=== PATIENT | male | born 1965 | race American Indian/Alaskan Native ===

== ENCOUNTER 2016-09-21 21:19 | Emergency (ER) | payer MEDICAID, OTHER ==
[2016-09-21 21:30] VITALS: BP 123/71
--- NOTE | 2016-09-21 21:43 | EDM.PDOC ---
ED HPI GI/ABDOMINAL - General Chief Complaint: Abdominal Pain Stated Complaint: AM Time Seen by Provider: 09/21/16 21:30 Source of Information: Reports: Patient History Limitations: Reports: No limitations - History of Present Illness INITIAL COMMENTS - FREE TEXT/NARRATIVE: This 51 yo male patient was brought to the ED by [facility] due to right sided abdominal pain. The patient reports his pain started on Thursday evening and has gotten worse since that time. The patient reports he was supposed to have dialysis yesterday (Thursday), but did not go due to his abdominal pain. The patient reports he has taken Tylenol, anti gas medications as well as his regular medications with no improvement in his pain. The patient reports he has a history of CKD, previous episodes of pancreatitis and diverticulitis, but has never had pain in this area before. The patient reports his whole abdomen is tender, but increased pain under his right ribs or in his right upper abdomen. The patient reports he is scheduled to have dialysis on Tuesdays, and Saturdays through [facility] in [place] (on [address]). The patient reports he only missed yesterday's dialysis appointment. Symptom Onset Date: 09/19/16 Timing/Duration: Reports: Constant, Getting worse Location: RUQ Quality: Reports: ache, cramping Severity: severe Worsens with: Reports: palpation Associated Symptoms: Reports: loss of appetite Treatments LODE MINER: Reports: Acetaminophen - Related Data Allergies/ADRs: Allergies Allergy/AdvReac Type Severity Reaction Status Date / Time codeine Allergy Airway Verified 09/21/16 21:26 Tightness tramadol Allergy Airway Verified 09/21/16 21:26 Tightness Home Meds: Home Meds Biotin/FA/Vit C/Vit B Complex [Nephrocaps] 1 tab PO DAILY 03/10/16 [History] Calcium Carbonate [Calcium] 500 mg PO DAILY 03/10/16 [History] Furosemide [Lasix] 40 mg PO DAILY 03/10/16 [History] Metoprolol Tartrate [Lopressor] 100 mg PO DAILY 03/10/16 [History] Omeprazole 20 mg PO DAILY 03/10/16 [History] Vit B Cmplx NO3/Fa/C/Biot/Zinc [Nephplex Rx] 1 each PO DAILY 03/10/16 [History] amLODIPine Besylate [Amlodipine Besylate] 10 mg PO DAILY 03/10/16 [History] Past Medical History HEENT History: Reports: Retinal detachment (right), Other (see below) (vision impairment--blind.) Other HEENT History: legally blind, can make out figures/shapes with right eye. Cardiovascular History: Reports: Hypertension Gastrointestinal History: Reports: Diverticulosis, GERD Genitourinary History: Reports: Dialysis, Renal calculus, Other (see below) ( end stage renal disease on dialysis.) Other Genitourinary History: ESRD Musculoskeletal History: Reports: Amputation, Fracture Psychiatric History: Reports: Anxiety Endocrine/Metabolic History: Reports: Diabetes, type II - Past Surgical History HEENT Surgical History: Reports: Eye surgery ( left diabetic retinopathy.), LASIK Musculoskeletal Surgical History: Reports: Amputation (right BKA.) Social & Family History - Family History Family Medical History: Noncontributory - Tobacco Use Smoking Status *Q: Former Smoker Years of Tobacco use: 20 Packs/Tins Daily: 0.1 Second Hand Smoke Exposure: Yes - Caffeine Use Caffeine Use: Reports: Coffee, Soda, Tea - Alcohol Use Days Per Week of Alcohol Use: 0 - Recreational Drug Use Recreational Drug Use: Yes Drug Use in Last 12 Months: Yes Recreational Drug Type: Reports: Marijuana/Hashish Recreational Drug Use Frequency: Not Used In Over 2 Months - Living Situation & Occupation Living situation: Reports: with significant other Occupation: disabled ED ROS GENERAL - Review of Systems Review Of Systems: ROS reveals no pertinent complaints other than HPI. ED EXAM, GI/ABD - Physical Exam Exam: See Below Exam Limited By: No limitations General Appearance: alert, WD/WN, severe distress, obese Eyes: bilateral: normal appearance, EOMI Ears: normal external exam, normal canal, hearing grossly normal, normal TMs Nose: normal inspection, normal mucosa, no blood Throat/Mouth: Normal inspection, Normal lips, Normal teeth, Normal gums, Normal oropharynx, Normal voice, No airway compromise Head: atraumatic, normocephalic Neck: normal inspection, supple, non-tender, full range of motion Respiratory/Chest: no respiratory distress, lungs clear, normal breath sounds, no accessory muscle use, chest non-tender Cardiovascular: normal peripheral pulses, regular rate, rhythm GI/Abdominal: normal bowel sounds, tenderness (diffuse), guarding (especially in the RUQ) (Male) Exam: Deferred Rectal (Males) Exam: Deferred Back Exam: normal inspection, full range of motion, NT Extremities: normal inspection, normal range of motion, non-tender, normal capillary refill, no pedal edema Neurological: alert, oriented, CN II-XII intact, normal cognition, normal gait, normal reflexes, no motor/sensory deficits Psychiatric: normal affect, normal mood Skin Exam: Warm, Dry, Intact, Normal color, No rash Lymphatic: no adenopathy Course - Vital Signs Last Recorded V/S: Last Vital Signs Temp 36.2 C 09/21/16 21:29 Pulse 70 09/21/16 21:29 Resp 22 H 09/21/16 21:29 BP 123/71 09/21/16 21:29 Pulse Ox 99 09/21/16 21:29 - Orders/Labs/Meds Orders: Active Orders 24 hr Category Date Time Status RT Aerosol Therapy [RC] ASDIRECTED Care 09/21/16 23:27 Ordered Abdomen Pelvis wo Cont [CT] Urgent Exams 09/21/16 22:08 Taken Chest 1V Frontal [CR] Urgent Exams 09/21/16 22:37 Taken Insulin Regular, Human [NovoLIN R] Med 09/22/16 23:25 Once 10 unit IV ONETIME ONE Lactated Ringers [Ringers, Lactated] 1,000 ml Med 09/21/16 23:45 Ordered IV ASDIRECTED Medication Orders Insulin Human Regular (Novolin R) 10 unit IV ONETIME ONE PRN Reason: Protocol Stop: 09/22/16 23:26 Labs: Laboratory Tests 09/21/16 09/21/16 09/21/16 Range/Units 21:35 21:35 21:35 WBC 7.6 (5.0-10.0) 10^3/uL RBC 2.82 L (4.6-6.2) 10^6/uL Hgb 9.0 L (14.0-18.0) g/dL Hct 28.1 L (40.0-54.0) % MCV 99.6 (80-100) fL MCH 31.9 (27.0-34.0) pg MCHC 32.0 L (33.0-35.0) g/dL Plt Count 202 (150-450) 10^3/uL Neut % (Auto) 68.2 (42.2-75.2) % Lymph % (Auto) 16.5 L (20.5-50.1) % [place] % (Auto) 11.4 H (2-8) % Eos % (Auto) 2.6 (1.0-3.0) % Baso % (Auto) 1.3 H (0.0-1.0) % Sodium 137 (135-145) mmol/L Potassium 6.0 H (3.6-5.0) mmol/L Chloride 102 (101-111) mmol/L Carbon Dioxide 21.0 (21.0-31.0) mmol/L Anion Gap 20.0 BUN 92 H (7-18) mg/dL Creatinine 8.8 H (0.6-1.3) mg/dL Est Cr Clr Drug Dosing TNP Estimated GFR (MDRD) 6 BUN/Creatinine Ratio 10.45 Glucose 92 (74-105) mg/dL Calcium 8.1 L (8.4-10.2) mg/dl Magnesium 2.5 (1.8-2.5) mg/dL Total Bilirubin 0.9 (0.2-1.0) mg/dL AST 36 (10-42) IU/L ALT 30 (10-60) IU/L Alkaline Phosphatase 194 H (42-121) IU/L B-Natriuretic Peptide 2480 H (0-100) pg/ml Total Protein 8.1 (6.7-8.2) g/dl Albumin 3.5 (3.2-5.5) g/dl Globulin 4.6 Albumin/Globulin Ratio 0.76 Amylase 102 H (28-100) U/L Lipase 60 H (22-51) U/L Urine Color (YELLOW) Urine Appearance (CLEAR) Urine pH (5.0-9.0) Ur Specific [place] (1.005-1.030) Urine Protein (NEGATIVE) Urine Glucose (UA) (NEGATIVE) Urine Ketones (NEGATIVE) Urine Occult Blood (NEGATIVE) Urine Nitrite (NEGATIVE) Urine Bilirubin (NEGATIVE) Urine Urobilinogen (0.2-1.0) mg/dL Ur Leukocyte Esterase (NEGATIVE) Urine RBC /HPF Urine WBC (0-5/HPF) /HPF Ur Epithelial Cells /HPF Urine Bacteria (0-FEW/HPF) /HPF Hyaline Casts /LPF Urine Opiates Screen (NEGATIVE) Ur Oxycodone Screen (NEGATIVE) Urine Methadone Screen (NEGATIVE) Ur Barbiturates Screen (NEGATIVE) U Tricyclic Antidepress (NEGATIVE) Ur Phencyclidine Scrn (NEGATIVE) Ur Amphetamine Screen (NEGATIVE) U Methamphetamines Scrn (NEGATIVE) Urine MDMA Screen (NEGATIVE) U Benzodiazepines Scrn (NEGATIVE) Urine Cocaine Screen (NEGATIVE) U Marijuana (THC) Screen (NEGATIVE) Ethyl Alcohol < 5 mg/dL 09/21/16 09/21/16 Range/Units 22:00 22:00 WBC (5.0-10.0) 10^3/uL RBC (4.6-6.2) 10^6/uL Hgb (14.0-18.0) g/dL Hct (40.0-54.0) % MCV (80-100) fL MCH (27.0-34.0) pg MCHC (33.0-35.0) g/dL Plt Count (150-450) 10^3/uL Neut % (Auto) (42.2-75.2) % Lymph % (Auto) (20.5-50.1) % [place] % (Auto) (2-8) % Eos % (Auto) (1.0-3.0) % Baso % (Auto) (0.0-1.0) % Sodium (135-145) mmol/L Potassium (3.6-5.0) mmol/L Chloride (101-111) mmol/L Carbon Dioxide (21.0-31.0) mmol/L Anion Gap BUN (7-18) mg/dL Creatinine (0.6-1.3) mg/dL Est Cr Clr Drug Dosing Estimated GFR (MDRD) BUN/Creatinine Ratio Glucose (74-105) mg/dL Calcium (8.4-10.2) mg/dl Magnesium (1.8-2.5) mg/dL Total Bilirubin (0.2-1.0) mg/dL AST (10-42) IU/L ALT (10-60) IU/L Alkaline Phosphatase (42-121) IU/L B-Natriuretic Peptide (0-100) pg/ml Total Protein (6.7-8.2) g/dl Albumin (3.2-5.5) g/dl Globulin Albumin/Globulin Ratio Amylase (28-100) U/L Lipase (22-51) U/L Urine Color Yellow (YELLOW) Urine Appearance Clear (CLEAR) Urine pH 8.5 (5.0-9.0) Ur Specific [place] 1.020 (1.005-1.030) Urine Protein >=300 H (NEGATIVE) Urine Glucose (UA) 250 H (NEGATIVE) Urine Ketones Negative (NEGATIVE) Urine Occult Blood Small H (NEGATIVE) Urine Nitrite Negative (NEGATIVE) Urine Bilirubin Negative (NEGATIVE) Urine Urobilinogen 0.2 (0.2-1.0) mg/dL Ur Leukocyte Esterase Negative (NEGATIVE) Urine RBC 10-20 H /HPF Urine WBC 0-5 (0-5/HPF) /HPF Ur Epithelial Cells Few /HPF Urine Bacteria Few (0-FEW/HPF) /HPF Hyaline Casts Occasional H /LPF Urine Opiates Screen Negative (NEGATIVE) Ur Oxycodone Screen Positive H (NEGATIVE) Urine Methadone Screen Negative (NEGATIVE) Ur Barbiturates Screen Negative (NEGATIVE) U Tricyclic Antidepress Negative (NEGATIVE) Ur Phencyclidine Scrn Negative (NEGATIVE) Ur Amphetamine Screen Negative (NEGATIVE) U Methamphetamines Scrn Negative (NEGATIVE) Urine MDMA Screen Negative (NEGATIVE) U Benzodiazepines Scrn Negative (NEGATIVE) Urine Cocaine Screen Negative (NEGATIVE) U Marijuana (THC) Screen Negative (NEGATIVE) Ethyl Alcohol mg/dL Meds: Medications Generic Name Dose Route Start Last Admin Trade Name Freq PRN Reason Stop Dose Admin Insulin Human Regular 10 unit 09/22/16 23:25 Novolin R IV 09/22/16 23:26 ONETIME ONE Protocol Discontinued Medications Generic Name Dose Route Start Last Admin Trade Name Freq PRN Reason Stop Dose Admin Albuterol 2.5 mg 09/21/16 23:25 Proventil Neb Soln NEB 09/21/16 23:26 ONETIME ONE Calcium Gluconate 1 gm 09/21/16 23:25 Calcium Gluconate IVPUSH 09/21/16 23:26 ONETIME ONE Dextrose/Water 50 ml 09/21/16 23:20 Dextrose 50% In Water IVPUSH 09/21/16 23:21 ONETIME ONE Sodium Polystyrene Sulfonate 15 gm 09/21/16 23:20 Kayexalate PO 09/21/16 23:21 ONETIME ONE Departure - Departure Time of Disposition: 23:34 Disposition: DC/Tfer to Acute Hospital 02 Condition: poor Clinical Impression: Hyperkalemia Abdominal pain Qualifiers: Abdominal location: right upper quadrant Qualified Code(s): R10.11 - Right upper quadrant pain Pancreatitis Qualifiers: Chronicity: acute Pancreatitis type: unspecified pancreatitis type Acute pancreatitis complication: unspecified Qualified Code(s): K85.90 - Acute pancreatitis without necrosis or infection, unspecified Forms: Interfacility Transfer EMTALA Care Plan Goals: Discussed the examination, history, CT and lab results with Dr. Dolan ( Hospitalist with [facility] in [place]). Dr. Dolan accepted the patient for continued evaluation and management. The patient will be transported by [facility]. - My Orders Last 24 Hours: My Active Orders 09/21/16 22:08 Abdomen Pelvis wo Cont [CT] Urgent 09/21/16 22:37 Chest 1V Frontal [CR] Urgent 09/21/16 23:27 RT Aerosol Therapy [RC] ASDIRECTED 09/21/16 23:45 Lactated Ringers [Ringers, Lactated] 1,000 ml IV ASDIRECTED 09/22/16 23:25 Insulin Regular, Human [NovoLIN R] 10 unit IV ONETIME ONE - Assessment/Plan Last 24 Hours: My Active Orders 09/21/16 22:08 Abdomen Pelvis wo Cont [CT] Urgent 09/21/16 22:37 Chest 1V Frontal [CR] Urgent 09/21/16 23:27 RT Aerosol Therapy [RC] ASDIRECTED 09/21/16 23:45 Lactated Ringers [Ringers, Lactated] 1,000 ml IV ASDIRECTED 09/22/16 23:25 Insulin Regular, Human [NovoLIN R] 10 unit IV ONETIME ONE
[2016-09-21 22:01] LABS: CHLORIDE,CL 102 mmol/L (101-111); SODIUM,NA 137 mmol/L (135-145)
[2016-09-21] MEDS ORDERED: 50% Dextrose in Water 50 ML Syringe IVPUSH ONE (23:20)
[2016-09-21] MEDS ORDERED: Sodium Polystyrene Sulfonate 15 GM/60 ML Susp 60 ML Bot PO ONE (23:20)
[2016-09-21] MEDS ORDERED: Albuterol 0.083% 2.5 MG/3 ML Neb Soln NEB ONE (23:25)
[2016-09-21] MEDS ORDERED: Calcium Gluconate 10% 1 GM/10 ML SDV IVPUSH ONE (23:25)
[2016-09-21] MEDS ORDERED: Insulin Regular, Human 100 Units/ML 10 ML Vial ONE (23:34)
[2016-09-21] MEDS ORDERED: Lactated Ringers 1,000 ML IV SCH (23:45)
[2016-09-22] MEDS ORDERED: Morphine 2 MG/ML Syringe IVPUSH ONE (00:13)
[2016-09-22] MEDS ORDERED: Morphine 2 MG/ML Syringe ONE (00:15)
[2016-09-22] MEDS ORDERED: Insulin Regular, Human 100 Units/ML 10 ML Vial IV ONE (23:25)
== END 2016-09-22 00:19 ==
LOC: DL.ED 21:19
DX: K85.90 Acute pancreatitis without necrosis or infection, unspecified (principal); E87.5 Hyperkalemia; Z88.6 Allergy status to analgesic agent; Z79.899 Other long term (current) drug therapy; H54.8 Legal blindness, as defined in USA; K21.9 Gastro-esophageal reflux disease without esophagitis; I12.0 Hypertensive chronic kidney disease with stage 5 chronic kidney disease or end stage renal disease; E11.22 Type 2 diabetes mellitus with diabetic chronic kidney disease; N18.6 End stage renal disease; Z99.2 Dependence on renal dialysis; E11.319 Type 2 diabetes mellitus with unspecified diabetic retinopathy without macular edema; Z89.511 Acquired absence of right leg below knee; Z87.891 Personal history of nicotine dependence
CPT/HCPCS: 36415; 71010; 74176; 80053; 80305; 81001; 82150; 83690; 83735; 83880; 85025; 94640; 96361; 96374; 96375; 99285; A9270; G0480; J0610; J1815; J2270; J7120; J7620; 99284; J7060

== ENCOUNTER 2016-11-25 21:26 | Emergency (ER) | payer MEDICAID, OTHER ==
--- NOTE | 2016-11-25 22:04 | EDM.PDOC ---
ED HPI GENERAL MEDICAL PROBLEM - General Chief Complaint: Abdominal Pain Stated Complaint: IN BY AMBULANCE Time Seen by Provider: 11/25/16 21:46 Source of Information: Reports: Patient History Limitations: Reports: No limitations - History of Present Illness INITIAL COMMENTS - FREE TEXT/NARRATIVE: This 51 yo male patient reports to the ED due to pain in his right knee due to a fall last Thursday. During the fall, the patient reports his left leg went through the floor and he his his right leg very hard on the floor. The patient reports he has been in so much pain since the fall, that he has missed dialysis last , last Thursday and today. The patient reports he has also been experiencing diarrhea over the past 2 days. The patient reports he has been taking all of his medications except for today. Today, the patient did not take his medications due to not eating. This patient has been seen in the ED with non -compliance issues with dialysis. The patient has dialysis in [place] and reports waiting for someone to change his dialysis location to either [place] or [place]. 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, NSAIDS Upper Abdomen Pain Score (Numeric/FACES): 6 - Related Data Allergies Allergy/AdvReac Type Severity Reaction Status Date / Time codeine Allergy Airway Verified 11/25/16 21:54 Tightness tramadol Allergy Airway Verified 11/25/16 21:54 Tightness Home Meds: Home Meds Biotin/FA/Vit C/Vit B Complex [Nephrocaps] 1 tab PO DAILY 03/10/16 [History] Calcium Carbonate [Calcium] 500 mg PO DAILY 03/10/16 [History] Furosemide [Lasix] 40 mg PO DAILY 03/10/16 [History] Metoprolol Tartrate [Lopressor] 100 mg PO DAILY 03/10/16 [History] Omeprazole 20 mg PO DAILY 03/10/16 [History] Vit B Cmplx NO3/Fa/C/Biot/Zinc [Nephplex Rx] 1 each PO DAILY 03/10/16 [History] amLODIPine Besylate [Amlodipine Besylate] 10 mg PO DAILY 03/10/16 [History] Past Medical History HEENT History: Reports: Retinal detachment, Other (see below) Other HEENT History: legally blind, can make out figures/shapes with right eye. Cardiovascular History: Reports: Hypertension Gastrointestinal History: Reports: Diverticulosis, GERD Genitourinary History: Reports: Dialysis, Renal calculus, Other (see below) Other Genitourinary History: ESRD Musculoskeletal History: Reports: Amputation, Fracture Psychiatric History: Reports: Anxiety Endocrine/Metabolic History: Reports: Diabetes, type II - Past Surgical History HEENT Surgical History: Reports: Eye surgery, LASIK Musculoskeletal Surgical History: Reports: Amputation Social & Family History - Family History Family Medical History: Noncontributory - Tobacco Use Smoking Status *Q: Never Smoker Years of Tobacco use: 20 Packs/Tins Daily: 0.1 Used Tobacco, but Quit: No Second Hand Smoke Exposure: Yes - Caffeine Use Caffeine Use: Reports: Soda - Alcohol Use Days Per Week of Alcohol Use: 0 Date of Last Drink: 11/11/16 - Recreational Drug Use Recreational Drug Use: No Drug Use in Last 12 Months: Yes Recreational Drug Type: Reports: Marijuana/Hashish Recreational Drug Use Frequency: Not Used In Over 2 Months - Living Situation & Occupation Living situation: Reports: with significant other Occupation: disabled ED ROS GENERAL - Review of Systems Review Of Systems: ROS reveals no pertinent complaints other than HPI. ED EXAM, GENERAL - Physical Exam Exam: See Below Exam Limited By: No limitations General Appearance: alert, WD/WN, moderate distress Eye Exam: bilateral eye: EOMI, PERRL Ears: normal external exam, normal canal, hearing grossly normal, normal TMs Nose: normal inspection, normal mucosa, no blood Throat/Mouth: Normal inspection, Normal lips, Normal teeth, Normal gums, Normal oropharynx, Normal voice, No airway compromise Head: atraumatic, normocephalic Neck: normal inspection, supple, non-tender, full range of motion Respiratory/Chest: no respiratory distress, lungs clear, normal breath sounds, no accessory muscle use, chest non-tender Cardiovascular: normal peripheral pulses, regular rate, rhythm, no edema, no gallop, no JVD, no murmur, no rub GI/Abdominal: Normal Bowel Sounds, Soft, No Organomegaly, No Distention, No Abnormal Bruit, No Mass, Pelvis Stable, Tender (diffuse) (Male) Exam: Deferred Rectal (Males) Exam: Deferred Back Exam: normal inspection, full range of motion, NT Extremities: other (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 There is no evidence of injury or bruising in the area.) Neurological: alert, oriented, CN II-XII intact, normal cognition, normal gait, normal reflexes, no motor/sensory deficits Psychiatric: depressed mood, flat affect Skin Exam: Warm, Intact, Normal color, No rash Lymphatic: no adenopathy Course - Vital Signs Last Recorded V/S: Last Vital Signs Temp 35.8 C 11/25/16 21:27 Pulse 71 11/25/16 21:27 Resp 20 11/25/16 21:27 BP 171/92 H 11/25/16 21:27 Pulse Ox 100 11/25/16 21:27 - Orders/Labs/Meds Orders: Active Orders 24 hr Category Date Time Status RT Aerosol Therapy [RC] ASDIRECTED Care 11/25/16 22:24 Ordered Chest 1V Frontal [CR] Urgent Exams 11/25/16 22:37 Ordered CULTURE BLOOD [BC] Stat Lab 11/25/16 21:40 Received CULTURE BLOOD [BC] Stat Lab 11/25/16 21:45 Received Insulin Regular, Human [NovoLIN R] Med 11/26/16 22:23 Once 10 unit IV ONETIME ONE Blood Culture x2 Reflex Set [OM.PC] Stat Oth 11/25/16 21:28 Ordered Medication Orders Insulin Human Regular (Novolin R) 10 unit IV ONETIME ONE PRN Reason: Protocol Stop: 11/26/16 22:24 Labs: Laboratory Tests 11/25/16 11/25/16 11/25/16 Range/Units 21:40 21:40 21:40 WBC 5.6 (5.0-10.0) 10^3/uL RBC 3.44 L (4.6-6.2) 10^6/uL Hgb 10.6 L (14.0-18.0) g/dL Hct 31.4 L (40.0-54.0) % MCV 91.3 (80-100) fL MCH 30.8 (27.0-34.0) pg MCHC 33.8 (33.0-35.0) g/dL Plt Count 115 L (150-450) 10^3/uL Neut % (Auto) 52.5 (42.2-75.2) % Lymph % (Auto) 30.6 (20.5-50.1) % [place] % (Auto) 14.4 H (2-8) % Eos % (Auto) 1.8 (1.0-3.0) % Baso % (Auto) 0.7 (0.0-1.0) % Sodium 136 (135-145) mmol/L Potassium 6.7 H* (3.6-5.0) mmol/L Chloride 100 L (101-111) mmol/L Carbon Dioxide 15.0 L (21.0-31.0) mmol/L Anion Gap 27.7 BUN 169 H (7-18) mg/dL Creatinine 19.2 H (0.6-1.3) mg/dL Est Cr Clr Drug Dosing 4.88 mL/min Estimated GFR (MDRD) 3 BUN/Creatinine Ratio 8.80 Glucose 103 (74-105) mg/dL Lactic Acid (0.5-2.2) mmol/L Calcium 7.4 L (8.4-10.2) mg/dl Magnesium 2.6 H (1.8-2.5) mg/dL Total Bilirubin 0.6 (0.2-1.0) mg/dL AST 31 (10-42) IU/L ALT 60 (10-60) IU/L Alkaline Phosphatase 134 H (42-121) IU/L Ammonia 37 H (11-35) umol/L B-Natriuretic Peptide > 5000 H (0-100) pg/ml Total Protein 8.0 (6.7-8.2) g/dl Albumin 3.8 (3.2-5.5) g/dl Globulin 4.2 Albumin/Globulin Ratio 0.90 Amylase 109 H (28-100) U/L Lipase 124 H (22-51) U/L Urine Color (YELLOW) Urine Appearance (CLEAR) Urine pH (5.0-9.0) Ur Specific [place] (1.005-1.030) Urine Protein (NEGATIVE) Urine Glucose (UA) (NEGATIVE) Urine Ketones (NEGATIVE) Urine Occult Blood (NEGATIVE) Urine Nitrite (NEGATIVE) Urine Bilirubin (NEGATIVE) Urine Urobilinogen (0.2-1.0) mg/dL Ur Leukocyte Esterase (NEGATIVE) Urine RBC /HPF Urine WBC (0-5/HPF) /HPF Ur Epithelial Cells /HPF Amorphous Sediment (0/HPF) /HPF Urine Bacteria (0-FEW/HPF) /HPF Fine Granular Casts (0/LPF) /LPF Urine Mucus /LPF Salicylates < 4 Urine Opiates Screen (NEGATIVE) Ur Oxycodone Screen (NEGATIVE) Urine Methadone Screen (NEGATIVE) Acetaminophen < 10 Ur Barbiturates Screen (NEGATIVE) U Tricyclic Antidepress (NEGATIVE) Ur Phencyclidine Scrn (NEGATIVE) Ur Amphetamine Screen (NEGATIVE) U Methamphetamines Scrn (NEGATIVE) Urine MDMA Screen (NEGATIVE) U Benzodiazepines Scrn (NEGATIVE) Urine Cocaine Screen (NEGATIVE) U Marijuana (THC) Screen (NEGATIVE) Ethyl Alcohol < 5 mg/dL 11/25/16 11/25/16 11/25/16 Range/Units 21:40 22:03 22:03 WBC (5.0-10.0) 10^3/uL RBC (4.6-6.2) 10^6/uL Hgb (14.0-18.0) g/dL Hct (40.0-54.0) % MCV (80-100) fL MCH (27.0-34.0) pg MCHC (33.0-35.0) g/dL Plt Count (150-450) 10^3/uL Neut % (Auto) (42.2-75.2) % Lymph % (Auto) (20.5-50.1) % [place] % (Auto) (2-8) % Eos % (Auto) (1.0-3.0) % Baso % (Auto) (0.0-1.0) % Sodium (135-145) mmol/L Potassium (3.6-5.0) mmol/L Chloride (101-111) mmol/L Carbon Dioxide (21.0-31.0) mmol/L Anion Gap BUN (7-18) mg/dL Creatinine (0.6-1.3) mg/dL Est Cr Clr Drug Dosing mL/min Estimated GFR (MDRD) BUN/Creatinine Ratio Glucose (74-105) mg/dL Lactic Acid 0.7 (0.5-2.2) mmol/L Calcium (8.4-10.2) mg/dl Magnesium (1.8-2.5) mg/dL Total Bilirubin (0.2-1.0) mg/dL AST (10-42) IU/L ALT (10-60) IU/L Alkaline Phosphatase (42-121) IU/L Ammonia (11-35) umol/L B-Natriuretic Peptide (0-100) pg/ml Total Protein (6.7-8.2) g/dl Albumin (3.2-5.5) g/dl Globulin Albumin/Globulin Ratio Amylase (28-100) U/L Lipase (22-51) U/L Urine Color Yellow (YELLOW) Urine Appearance Cloudy (CLEAR) Urine pH 6.0 (5.0-9.0) Ur Specific [place] 1.020 (1.005-1.030) Urine Protein >=300 H (NEGATIVE) Urine Glucose (UA) 100 H (NEGATIVE) Urine Ketones Negative (NEGATIVE) Urine Occult Blood Moderate H (NEGATIVE) Urine Nitrite Negative (NEGATIVE) Urine Bilirubin Negative (NEGATIVE) Urine Urobilinogen 0.2 (0.2-1.0) mg/dL Ur Leukocyte Esterase Negative (NEGATIVE) Urine RBC 20-30 H /HPF Urine WBC 0-5 (0-5/HPF) /HPF Ur Epithelial Cells Moderate H /HPF Amorphous Sediment Moderate (0/HPF) /HPF Urine Bacteria Rare (0-FEW/HPF) /HPF Fine Granular Casts Few H (0/LPF) /LPF Urine Mucus Moderate H /LPF Salicylates Urine Opiates Screen Negative (NEGATIVE) Ur Oxycodone Screen Negative (NEGATIVE) Urine Methadone Screen Negative (NEGATIVE) Acetaminophen Ur Barbiturates Screen Negative (NEGATIVE) U Tricyclic Antidepress Negative (NEGATIVE) Ur Phencyclidine Scrn Negative (NEGATIVE) Ur Amphetamine Screen Negative (NEGATIVE) U Methamphetamines Scrn Negative (NEGATIVE) Urine MDMA Screen Negative (NEGATIVE) U Benzodiazepines Scrn Negative (NEGATIVE) Urine Cocaine Screen Negative (NEGATIVE) U Marijuana (THC) Screen Negative (NEGATIVE) Ethyl Alcohol mg/dL Meds: Medications Generic Name Dose Route Start Last Admin Trade Name Freq PRN Reason Stop Dose Admin Insulin Human Regular 10 unit 11/26/16 22:23 Novolin R IV 11/26/16 22:24 ONETIME ONE Protocol Discontinued Medications Generic Name Dose Route Start Last Admin Trade Name Freq PRN Reason Stop Dose Admin Albuterol 2.5 mg 11/25/16 22:24 Proventil Neb Soln NEB 11/25/16 22:25 ONETIME ONE Calcium Gluconate 1 gm 11/25/16 22:25 Calcium Gluconate IVPUSH 11/25/16 22:26 ONETIME ONE Dextrose/Water 50 ml 11/25/16 22:24 Dextrose 50% In Water IVPUSH 11/25/16 22:25 ONETIME ONE Insulin Human Regular Confirm 11/25/16 22:40 Novolin R Administered 11/25/16 22:41 Dose 1,000 unit .ROUTE .STK-MED ONE Sodium Bicarbonate 50 meq 11/25/16 22:39 Sodium Bicarbonate 8.4% IVPUSH 11/25/16 22:40 ONETIME ONE Sodium Polystyrene Sulfonate 30 gm 11/25/16 22:25 Kayexalate PO 11/25/16 22:26 ONETIME ONE Departure - Departure Time of Disposition: 10:49 Disposition: DC/Tfer to [facility] 02 Condition: poor Clinical Impression: Hyperkalemia, CHF, Congestive heart failure, Dialysis patient, noncompliant Renal failure Qualifiers: Renal failure chronicity: chronic Chronic kidney disease stage: unspecified stage Qualified Code(s): N18.9 - Chronic kidney disease, unspecified - Discharge Information Forms: Interfacility Transfer EMTALA Care Plan Goals: Discussed the examination, history, x-ray and lab results with Dr. Blackwell ([facility] Hospitalist). Dr. Blackwell accepted the patient for continued evaluation and management. The patient will be transported by [facility]. - My Orders Last 24 Hours: My Active Orders 11/25/16 21:28 Blood Culture x2 Reflex Set [OM.PC] Stat 11/25/16 21:40 CULTURE BLOOD [BC] Stat 11/25/16 21:45 CULTURE BLOOD [BC] Stat 11/25/16 22:24 RT Aerosol Therapy [RC] ASDIRECTED 11/25/16 22:37 Chest 1V Frontal [CR] Urgent 11/26/16 22:23 Insulin Regular, Human [NovoLIN R] 10 unit IV ONETIME ONE - Assessment/Plan Last 24 Hours: My Active Orders 11/25/16 21:28 Blood Culture x2 Reflex Set [OM.PC] Stat 11/25/16 21:40 CULTURE BLOOD [BC] Stat 11/25/16 21:45 CULTURE BLOOD [BC] Stat 11/25/16 22:24 RT Aerosol Therapy [RC] ASDIRECTED 11/25/16 22:37 Chest 1V Frontal [CR] Urgent 11/26/16 22:23 Insulin Regular, Human [NovoLIN R] 10 unit IV ONETIME ONE
[2016-11-25 22:11] LABS: CHLORIDE,CL 100 mmol/L (101-111); SODIUM,NA 136 mmol/L (135-145)
[2016-11-25 22:16] LABS: ACETAMINOPHEN < 10
[2016-11-25] MEDS ORDERED: 50% Dextrose in Water 50 ML Syringe IVPUSH ONE (22:24)
[2016-11-25] MEDS ORDERED: Albuterol 0.083% 2.5 MG/3 ML Neb Soln NEB ONE (22:24)
[2016-11-25] MEDS ORDERED: Sodium Polystyrene Sulfonate 15 GM/60 ML Susp 60 ML Bot PO ONE (22:25)
[2016-11-25] MEDS ORDERED: Calcium Gluconate 10% 1 GM/10 ML SDV IVPUSH ONE (22:25)
[2016-11-25] MEDS ORDERED: Sodium Bicarbonate 8.4% 50 MEQ/50 ML Syringe IVPUSH ONE (22:39)
[2016-11-25] MEDS ORDERED: Insulin Regular, Human 100 Units/ML 10 ML Vial ONE (22:40)
[2016-11-25 23:32] VITALS: BP 171/84
[2016-11-26] MEDS ORDERED: Insulin Regular, Human 100 Units/ML 10 ML Vial IV ONE (22:23)
== END 2016-11-25 23:50 ==
LOC: DL.ED 21:26
DX: I13.2 Hypertensive heart and chronic kidney disease with heart failure and with stage 5 chronic kidney disease, or end stage renal disease (principal); I50.9 Heart failure, unspecified; N18.6 End stage renal disease; E87.5 Hyperkalemia; K21.9 Gastro-esophageal reflux disease without esophagitis; E11.9 Type 2 diabetes mellitus without complications; F41.9 Anxiety disorder, unspecified; Z99.2 Dependence on renal dialysis; Z88.6 Allergy status to analgesic agent; Z88.8 Allergy status to other drugs, medicaments and biological substances; Z79.899 Other long term (current) drug therapy
CPT/HCPCS: 36415; 71010; 73562; 80053; 80305; 81001; 82140; 82150; 83605; 83690; 83735; 83880; 85025; 87040; 94640; 96374; 96375; 99285; A9270; G0480; J0610; J1815; J7620; J7060

== ENCOUNTER 2016-12-10 18:38 | Emergency (ER) | payer MEDICAID, OTHER ==
[2016-12-10] MEDS ORDERED: Metoclopramide 10 MG/2 ML SDV IVPUSH ONE (19:42)
[2016-12-10 20:41] VITALS: BP 162/85
--- NOTE | 2016-12-10 20:58 | EDM.PDOC ---
ED HPI GENERAL MEDICAL PROBLEM - General Chief Complaint: General Stated Complaint: BY AMBULANCE Time Seen by Provider: 12/10/16 19:30 Source of Information: Reports: Patient - History of Present Illness INITIAL COMMENTS - FREE TEXT/NARRATIVE: ED with c/o severe n-v-d, dialysis pt. last run was 2 weeks ago. Patient states to sick to go to [place] for dialysis with urgent diarrhea. dx 2 weeks ago , completed abx for c-diff but not any better. no c/o chest pain or SOB. BS running 120-130 today. Duration: Week(s): Lower Abdomen Pain Score (Numeric/FACES): 8 - Related Data Allergies Allergy/AdvReac Type Severity Reaction Status Date / Time codeine Allergy Airway Verified 12/10/16 19:10 Tightness tramadol Allergy Airway Verified 12/10/16 19:10 Tightness Home Meds: Home Meds Biotin/FA/Vit C/Vit B Complex [Nephrocaps] 1 tab PO DAILY 03/10/16 [History] Calcium Carbonate [Calcium] 500 mg PO DAILY 03/10/16 [History] Furosemide [Lasix] 40 mg PO DAILY 03/10/16 [History] Metoprolol Tartrate [Lopressor] 100 mg PO DAILY 03/10/16 [History] Omeprazole 20 mg PO DAILY 03/10/16 [History] Vit B Cmplx NO3/Fa/C/Biot/Zinc [Nephplex Rx] 1 each PO DAILY 03/10/16 [History] amLODIPine Besylate [Amlodipine Besylate] 10 mg PO DAILY 03/10/16 [History] Past Medical History HEENT History: Reports: Retinal Detachment, Other (See Below) Other HEENT History: legally blind, can make out figures/shapes with right eye. Cardiovascular History: Reports: Hypertension Gastrointestinal History: Reports: Diverticulosis, GERD Genitourinary History: Reports: Dialysis, Renal Calculus, Other (See Below) Other Genitourinary History: ESRD Musculoskeletal History: Reports: Amputation, Fracture Neurological History: Reports: None Psychiatric History: Reports: Anxiety Endocrine/Metabolic History: Reports: Diabetes, Type II Hematologic History: Reports: None Immunologic History: Reports: None Oncologic (Cancer) History: Reports: None Dermatologic History: Reports: None - Infectious Disease History Infectious Disease History: Reports: C-Difficile - Past Surgical History HEENT Surgical History: Reports: Eye Surgery, LASIK Musculoskeletal Surgical History: Reports: Amputation Social & Family History - Family History Family Medical History: Noncontributory - Tobacco Use Smoking Status *Q: Never Smoker Years of Tobacco use: 20 Packs/Tins Daily: 0.1 Used Tobacco, but Quit: No Second Hand Smoke Exposure: Yes - Caffeine Use Caffeine Use: Reports: None - Alcohol Use Days Per Week of Alcohol Use: 0 - Recreational Drug Use Recreational Drug Use: No Drug Use in Last 12 Months: Yes Recreational Drug Type: Reports: Marijuana/Hashish Recreational Drug Use Frequency: Not Used In Over 2 Months - Living Situation & Occupation Living situation: Reports: with Significant Other Occupation: Disabled ED ROS GENERAL - Review of Systems Review Of Systems: See Below Constitutional: Reports: Weakness HEENT: Reports: No Symptoms Respiratory: Reports: No Symptoms Cardiovascular: Reports: No Symptoms GI/Abdominal: Reports: Abdominal Pain (cramping), Diarrhea, Decreased Appetite ( everything runs straight through). Denies: Distension, Melena : Reports: No Symptoms Musculoskeletal: Reports: No Symptoms Skin: Reports: No Symptoms Neurological: Reports: No Symptoms ED EXAM, GENERAL - Physical Exam Exam: See Below Exam Limited By: No Limitations General Appearance: Alert, Mild Distress Eye Exam: Bilateral Eye: EOMI Ears: Normal External Exam Nose: Normal Inspection Throat/Mouth: Normal Inspection Head: Atraumatic, Normocephalic Neck: Normal Inspection Respiratory/Chest: No Respiratory Distress, Crackles (bilateral bases) Cardiovascular: Normal Peripheral Pulses, Regular Rate, Rhythm GI/Abdominal: Tender (mid abdomen), Abnormal Bowel Sounds (hyperactive), Other ( dry heaves, no emesis). No: Distended Back Exam: Normal Inspection, Full Range of Motion Extremities: Other (right BKA) Neurological: Alert, Oriented Psychiatric: Normal Affect Skin Exam: Warm, Intact Course - Vital Signs Last Recorded V/S: Last Vital Signs Temp 98.2 F 12/10/16 20:40 Pulse 81 12/10/16 20:40 Resp 16 12/10/16 20:40 BP 162/85 H 12/10/16 20:40 Pulse Ox 96 12/10/16 20:40 - Orders/Labs/Meds Orders: Active Orders 24 hr Category Date Time Status EKG 12 Lead [EKG Documentation Completion] [RC] STAT Care 12/10/16 19:20 Active Labs: Laboratory Tests 12/10/16 12/10/16 12/10/16 Range/Units 19:25 19:25 19:25 WBC 6.2 (5.0-10.0) 10^3/uL RBC 2.95 L (4.6-6.2) 10^6/uL Hgb 9.0 L (14.0-18.0) g/dL Hct 27.3 L (40.0-54.0) % MCV 92.5 (80-100) fL MCH 30.5 (27.0-34.0) pg MCHC 33.0 (33.0-35.0) g/dL Plt Count 184 (150-450) 10^3/uL Neut % (Auto) 58.7 (42.2-75.2) % Lymph % (Auto) 23.7 (20.5-50.1) % [place] % (Auto) 10.7 H (2-8) % Eos % (Auto) 5.8 H (1.0-3.0) % Baso % (Auto) 1.1 H (0.0-1.0) % Sodium 136 (135-145) mmol/L Potassium 6.7 H* (3.6-5.0) mmol/L Chloride 98 L (101-111) mmol/L Carbon Dioxide 15.0 L (21.0-31.0) mmol/L Anion Gap 29.7 BUN 176 H (7-18) mg/dL Creatinine 22.0 H (0.6-1.3) mg/dL Est Cr Clr Drug Dosing 4.26 mL/min Estimated GFR (MDRD) 2 BUN/Creatinine Ratio 8.00 Glucose 120 H (74-105) mg/dL Calcium 6.9 L (8.4-10.2) mg/dl Magnesium 2.2 (1.8-2.5) mg/dL Total Bilirubin 0.9 (0.2-1.0) mg/dL AST 16 (10-42) IU/L ALT 21 (10-60) IU/L Alkaline Phosphatase 169 H (42-121) IU/L C-Reactive Protein 2.0 H (0.0-1.3) mg/dL B-Natriuretic Peptide 4850 H (0-100) pg/ml Total Protein 8.1 (6.7-8.2) g/dl Albumin 3.5 (3.2-5.5) g/dl Globulin 4.6 Albumin/Globulin Ratio 0.76 Amylase 73 (28-100) U/L Lipase 74 H (22-51) U/L Meds: Medications Discontinued Medications Generic Name Dose Route Start Last Admin Trade Name Freq PRN Reason Stop Dose Admin Metoclopramide HCl 10 mg 12/10/16 19:42 12/10/16 19:46 Reglan IVPUSH 12/10/16 19:43 10 mg ONETIME ONE Administration - Radiology Interpretation Free Text/Narrative:: CT abdomen, diverticulosis , mesenteric edema, gall stone , ascites - Re-Assessments/Exams Free Text/Narrative Re-Assessment/Exam: 12/11/16 04:[address] Dueñas, accepting of patient for further evaluation and management. Tx via [facility]. Departure - Departure Time of Disposition: 20:50 Disposition: DC/Tfer to Acute Hospital 02 Condition: fair Clinical Impression: Dialysis patient, noncompliant, Hx of Clostridium difficile infection, ESRD ( end stage renal disease) on dialysis Diarrhea Qualifiers: Diarrhea type: presumed infectious Qualified Code(s): A09 - Infectious gastroenteritis and colitis, unspecified - Discharge Information Referrals: PCP,None [Primary Care Provider] - Forms: ED Department Discharge - My Orders Last 24 Hours: My Active Orders 12/10/16 19:20 EKG 12 Lead [EKG Documentation Completion] [RC] STAT - Assessment/Plan Last 24 Hours: My Active Orders 12/10/16 19:20 EKG 12 Lead [EKG Documentation Completion] [RC] STAT
--- NOTE | 2016-12-16 10:54 | EKG ---
12/10/2016- GABBI SULLIVAN - EKG per my reading shows sinus rhythm with left anterior fascicular block at the rate of 79. [facility] /[id number]
== END 2016-12-10 21:07 ==
LOC: DL.ED 18:38
DX: A09 Infectious gastroenteritis and colitis, unspecified (principal); I12.0 Hypertensive chronic kidney disease with stage 5 chronic kidney disease or end stage renal disease; N18.6 End stage renal disease; K21.9 Gastro-esophageal reflux disease without esophagitis; F41.9 Anxiety disorder, unspecified; E11.9 Type 2 diabetes mellitus without complications; Z88.5 Allergy status to narcotic agent; Z79.899 Other long term (current) drug therapy; Z99.2 Dependence on renal dialysis
CPT/HCPCS: 36415; 71010; 74176; 80053; 82150; 83690; 83735; 83880; 85025; 86140; 93005; 96374; 99285; J2765

== ENCOUNTER 2017-01-21 13:28 | Emergency (ER) | payer MEDICAID, OTHER ==
--- NOTE | 2017-01-21 13:32 | EDM.PDOC ---
ED HPI GENERAL MEDICAL PROBLEM - General Chief Complaint: Cardiovascular Problem Stated Complaint: IN BY SL AMB Time Seen by Provider: 01/21/17 13:31 Source of Information: Reports: Patient, EMS, EMS Notes Reviewed, Family (exwife ), Old Records, RN, RN Notes Reviewed History Limitations: Reports: No Limitations - History of Present Illness INITIAL COMMENTS - FREE TEXT/NARRATIVE: Arrives from home by ambulance with c/o intermittent confusion, increasing edema , SOB, orthopnea, and profound fatigue. Pt has ESRD and has not gone to dialysis or taken any of his medications for 2 weeks. 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 Pt denies chest pain, fever, chills, N/V/D/C, or abdominal pain. Onset: Gradual Duration: Week(s): (2), Constant, Getting Worse Location: Reports: Generalized Quality: Reports: Ache (in arms and legs) Severity: Severe Improves with: Reports: None Worsens with: Reports: Other (supine position) Associated Symptoms: Reports: No Other Symptoms Bilateral Leg Pain Score (Numeric/FACES): 9 - Related Data Allergies Allergy/AdvReac Type Severity Reaction Status Date / Time codeine Allergy Airway Verified 12/10/16 19:10 Tightness tramadol Allergy Airway Verified 12/10/16 19:10 Tightness Home Meds: Home Meds Biotin/FA/Vit C/Vit B Complex [Nephrocaps] 1 tab PO DAILY 03/10/16 [History] Calcium Carbonate [Calcium] 500 mg PO DAILY 03/10/16 [History] Furosemide [Lasix] 40 mg PO DAILY 03/10/16 [History] Metoprolol Tartrate [Lopressor] 100 mg PO DAILY 03/10/16 [History] Omeprazole 20 mg PO DAILY 03/10/16 [History] Vit B Cmplx NO3/Fa/C/Biot/Zinc [Nephplex Rx] 1 each PO DAILY 03/10/16 [History] amLODIPine Besylate [Amlodipine Besylate] 10 mg PO DAILY 03/10/16 [History] Past Medical History HEENT History: Reports: Retinal Detachment, Other (See Below) Other HEENT History: legally blind, can make out figures/shapes with right eye. Cardiovascular History: Reports: Heart Failure, Hypertension, SOB on Exertion Gastrointestinal History: Reports: Diverticulosis, GERD Genitourinary History: Reports: Dialysis, Renal Calculus, Other (See Below) Other Genitourinary History: ESRD Musculoskeletal History: Reports: Amputation, Fracture Neurological History: Reports: None Psychiatric History: Reports: Anxiety Endocrine/Metabolic History: Reports: Diabetes, Type II Hematologic History: Reports: None Immunologic History: Reports: None Oncologic (Cancer) History: Reports: None Dermatologic History: Reports: None - Infectious Disease History Infectious Disease History: Reports: C-Difficile - Past Surgical History HEENT Surgical History: Reports: Eye Surgery, LASIK Musculoskeletal Surgical History: Reports: Amputation Social & Family History - Family History Family Medical History: Noncontributory - Tobacco Use Smoking Status *Q: Never Smoker Years of Tobacco use: 20 Packs/Tins Daily: 0.1 Used Tobacco, but Quit: No Second Hand Smoke Exposure: Yes - Caffeine Use Caffeine Use: Reports: None - Alcohol Use Days Per Week of Alcohol Use: 0 - Recreational Drug Use Recreational Drug Use: No Drug Use in Last 12 Months: Yes Recreational Drug Type: Reports: Marijuana/Hashish Recreational Drug Use Frequency: Not Used In Over 2 Months - Living Situation & Occupation Living situation: Reports: (lives with exwife) Occupation: Disabled ED ROS GENERAL - Review of Systems Review Of Systems: ROS reveals no pertinent complaints other than HPI. ED EXAM, GENERAL - Physical Exam Exam: See Below Exam Limited By: No Limitations General Appearance: Alert, Anxious, Obese, Other (chronically ill appearing) Eye Exam: Bilateral Eye: Normal Inspection Ears: Hearing Grossly Normal Nose: Normal Inspection Throat/Mouth: Normal Oropharynx, Normal Voice, No Airway Compromise Head: Atraumatic, Normocephalic Neck: Supple, Non-Tender, Full Range of Motion. No: Lymphadenopathy (L), Lymphadenopathy (R) Respiratory/Chest: No Respiratory Distress, No Accessory Muscle Use, Decreased Breath Sounds, Crackles, Rales Cardiovascular: Regular Rate, Rhythm, JVD, Other (+3 edema to thighs, anasarca) GI/Abdominal: Normal Bowel Sounds, Soft, Non-Tender, No Distention, Other ( obese abdomen with anasarca). No: Guarding, Rigid, Rebound (Male) Exam: Deferred Rectal (Males) Exam: Deferred Back Exam: Other (sacral edema). No: CVA Tenderness (L), CVA Tenderness (R) Extremities: Pedal Edema, Other (s/p Rt BKA) Neurological: Alert, Oriented, CN II-XII Intact, Normal Cognition, Other (no acute motor/sensory deficits) Psychiatric: Anxious Skin Exam: Warm, Dry, Other (chronic LLE venous stasis changes) EKG INTERPRETATION EKG Date: 01/21/17 Time: 13:31 Rhythm: Other (SR) Rate (Beats/Min): 76 [place]: Normal P-Wave: Present QRS: Wide (nonspecific IVCD, old inferior Q waves) ST-T: Normal QT: Normal OR/PQ Interval: prolonged OR interval Comparison: NA - No Prior EKG Course - Vital Signs Last Recorded V/S: Last Vital Signs Temp 36.6 C 01/21/17 14:27 Pulse 75 01/21/17 14:42 Resp 20 01/21/17 14:27 BP 137/61 01/21/17 14:27 Pulse Ox 98 01/21/17 14:42 - Orders/Labs/Meds Orders: Active Orders 24 hr Category Date Time Status EKG 12 Lead [EKG Documentation Completion] [RC] STAT Care 01/21/17 13:32 Active Peripheral IV Care [RC] . DIRECTED Care 01/21/17 13:33 Active RT Aerosol Therapy [RC] ASDIRECTED Care 01/21/17 14:37 Active B-TYPE NATRIURETIC PEPTIDE,BNP [CHEM] Stat Lab 01/21/17 13:40 Results COMPREHENSIVE METABOLIC PN,CMP [CHEM] Stat Lab 01/21/17 13:40 Results CULTURE BLOOD [BC] Stat Lab 01/21/17 13:40 Received CULTURE BLOOD [BC] Stat Lab 01/21/17 13:46 Received ETHANOL BLOOD MEDICAL [CHEM] Stat Lab 01/21/17 13:40 Results LACTIC ACID [CHEM] Stat Lab 01/21/17 13:40 Received MAGNESIUM [CHEM] Stat Lab 01/21/17 13:40 Results PHOSPHORUS [CHEM] Stat Lab 01/21/17 13:40 Results TROPONIN I [CHEM] Stat Lab 01/21/17 13:40 Results UA W/MICROSCOPIC [URIN] Stat Lab 01/21/17 14:55 Received Sodium Chloride 0.9% [Saline Flush] Med 01/21/17 13:33 Active 10 ml FLUSH ASDIRECTED PRN Blood Culture x2 Reflex Set [OM.PC] Stat Oth 01/21/17 13:33 Ordered Peripheral IV Insertion Adult [OM.PC] Stat Oth 01/21/17 13:32 Ordered Medication Orders Sodium Chloride (Saline Flush) 10 ml FLUSH ASDIRECTED PRN PRN Reason: Keep Vein Open Last Admin: 01/21/17 13:54 Dose: 10 ml Labs: Laboratory Tests 01/21/17 01/21/17 01/21/17 Range/Units 13:31 13:40 13:40 WBC 7.1 (5.0-10.0) 10^3/uL RBC 2.70 L (4.6-6.2) 10^6/uL Hgb 8.7 L (14.0-18.0) g/dL Hct 26.7 L (40.0-54.0) % MCV 98.9 (80-100) fL MCH 32.2 (27.0-34.0) pg MCHC 32.6 L (33.0-35.0) g/dL Plt Count 133 L (150-450) 10^3/uL Neut % (Auto) 64.4 (42.2-75.2) % Lymph % (Auto) 17.4 L (20.5-50.1) % [place] % (Auto) 13.3 H (2-8) % Eos % (Auto) 4.0 H (1.0-3.0) % Baso % (Auto) 0.9 (0.0-1.0) % PT 11.4 (9.0-12.0) SEC INR 1.1 (0.9-1.2) APTT 29.1 (22.0-34.0) SEC Sodium (135-145) mmol/L Potassium Chloride Carbon Dioxide Anion Gap BUN Creatinine Est Cr Clr Drug Dosing Estimated GFR (MDRD) BUN/Creatinine Ratio Glucose POC Glucose 87 (70-105) mg/dl Calcium Phosphorus Magnesium Total Bilirubin AST ALT Alkaline Phosphatase Troponin I (0.00-0.02) ng/ml B-Natriuretic Peptide (0-100) pg/ml Total Protein Albumin Globulin Albumin/Globulin Ratio Urine Opiates Screen (NEGATIVE) Ur Oxycodone Screen (NEGATIVE) Urine Methadone Screen (NEGATIVE) Ur Barbiturates Screen (NEGATIVE) U Tricyclic Antidepress (NEGATIVE) Ur Phencyclidine Scrn (NEGATIVE) Ur Amphetamine Screen (NEGATIVE) U Methamphetamines Scrn (NEGATIVE) Urine MDMA Screen (NEGATIVE) U Benzodiazepines Scrn (NEGATIVE) Urine Cocaine Screen (NEGATIVE) U Marijuana (THC) Screen (NEGATIVE) 01/21/17 01/21/17 01/21/17 Range/Units 13:40 14:55 15:01 WBC (5.0-10.0) 10^3/uL RBC (4.6-6.2) 10^6/uL Hgb (14.0-18.0) g/dL Hct (40.0-54.0) % MCV (80-100) fL MCH (27.0-34.0) pg MCHC (33.0-35.0) g/dL Plt Count (150-450) 10^3/uL Neut % (Auto) (42.2-75.2) % Lymph % (Auto) (20.5-50.1) % [place] % (Auto) (2-8) % Eos % (Auto) (1.0-3.0) % Baso % (Auto) (0.0-1.0) % PT (9.0-12.0) SEC INR (0.9-1.2) APTT (22.0-34.0) SEC Sodium 135 (135-145) mmol/L Potassium Not Reportable Chloride Not Reportable Carbon Dioxide Not Reportable Anion Gap Not Reportable BUN Not Reportable Creatinine Not Reportable Est Cr Clr Drug Dosing Not Reportable Estimated GFR (MDRD) Not Reportable BUN/Creatinine Ratio Not Reportable Glucose Not Reportable POC Glucose 255 H (70-105) mg/dl Calcium Not Reportable Phosphorus Not Reportable Magnesium Not Reportable Total Bilirubin Not Reportable AST Not Reportable ALT Not Reportable Alkaline Phosphatase Not Reportable Troponin I 0.08 H* (0.00-0.02) ng/ml B-Natriuretic Peptide 2410 H (0-100) pg/ml Total Protein Not Reportable Albumin Not Reportable Globulin Not Reportable Albumin/Globulin Ratio Not Reportable Urine Opiates Screen Negative (NEGATIVE) Ur Oxycodone Screen Positive H (NEGATIVE) Urine Methadone Screen Negative (NEGATIVE) Ur Barbiturates Screen Negative (NEGATIVE) U Tricyclic Antidepress Negative (NEGATIVE) Ur Phencyclidine Scrn Negative (NEGATIVE) Ur Amphetamine Screen Negative (NEGATIVE) U Methamphetamines Scrn Negative (NEGATIVE) Urine MDMA Screen Negative (NEGATIVE) U Benzodiazepines Scrn Negative (NEGATIVE) Urine Cocaine Screen Negative (NEGATIVE) U Marijuana (THC) Screen Negative (NEGATIVE) See scanned report for CMP labs: K=7.7, Cr 18.9 Meds: Medications Generic Name Dose Route Start Last Admin Trade Name Freq PRN Reason Stop Dose Admin Sodium Chloride 10 ml 01/21/17 13:33 01/21/17 13:54 Saline Flush FLUSH 10 ml ASDIRECTED PRN Administration Keep Vein Open Discontinued Medications Generic Name Dose Route Start Last Admin Trade Name Freq PRN Reason Stop Dose Admin Albuterol 10 mg 01/21/17 14:36 01/21/17 14:47 Proventil Neb Soln NEB 01/21/17 14:37 10 mg ONETIME ONE Administration Calcium Chloride 1 gm 01/21/17 14:36 01/21/17 14:55 Calcium Chloride 10% IVPUSH 01/21/17 14:37 1 gm ONETIME ONE Administration Dextrose/Water 100 ml 01/21/17 14:37 01/21/17 14:53 Dextrose 50% In Water IVPUSH 01/21/17 14:38 100 ml ONETIME ONE Administration Furosemide 40 mg 01/21/17 14:17 01/21/17 14:21 Lasix IVPUSH 01/21/17 14:18 40 mg NOW ONE Administration Insulin Human Regular 10 unit 01/21/17 14:38 01/21/17 14:51 Humulin R IV 01/21/17 14:39 10 unit ONETIME ONE Administration Protocol Sodium Polystyrene Sulfonate 45 gm 01/21/17 14:36 01/21/17 14:49 Kayexalate PO 01/21/17 14:37 45 gm NOW ONE Administration - Radiology Interpretation Free Text/Narrative:: CXR: chronic cardiomegaly, no acute findings compared to prior study per Rad. report. Departure - Departure Time of Disposition: 14:50 Disposition: DC/Tfer to Acute Hospital 02 Condition: Critical Clinical Impression: Dialysis patient, noncompliant, ESRD (end stage renal disease) on dialysis, Hyperkalemia CHF (congestive heart failure) Qualifiers: Congestive heart failure type: unspecified congestive heart failure type Congestive heart failure chronicity: acute on chronic Qualified Code(s): I50.9 - Heart failure, unspecified Altered mental status Qualifiers: Altered mental status type: transient alteration of awareness Qualified Code(s) : R40.4 - Transient alteration of awareness - Discharge Information Forms: ED Department Discharge, Interfacility Transfer EMTALA - My Orders Last 24 Hours: My Active Orders 01/21/17 13:32 EKG 12 Lead [EKG Documentation Completion] [RC] STAT Peripheral IV Insertion Adult [OM.PC] Stat 01/21/17 13:33 Peripheral IV Care [RC] . DIRECTED Sodium Chloride 0.9% [Saline Flush] 10 ml FLUSH ASDIRECTED PRN Blood Culture x2 Reflex Set [OM.PC] Stat 01/21/17 13:40 B-TYPE NATRIURETIC PEPTIDE,BNP [CHEM] Stat COMPREHENSIVE METABOLIC PN,CMP [CHEM] Stat CULTURE BLOOD [BC] Stat ETHANOL BLOOD MEDICAL [CHEM] Stat LACTIC ACID [CHEM] Stat MAGNESIUM [CHEM] Stat PHOSPHORUS [CHEM] Stat TROPONIN I [CHEM] Stat 01/21/17 13:46 CULTURE BLOOD [BC] Stat 01/21/17 14:37 RT Aerosol Therapy [RC] ASDIRECTED 01/21/17 14:55 UA W/MICROSCOPIC [URIN] Stat - Assessment/Plan Last 24 Hours: My Active Orders 01/21/17 13:32 EKG 12 Lead [EKG Documentation Completion] [RC] STAT Peripheral IV Insertion Adult [.] Stat 01/21/17 13:33 Peripheral IV Care [RC] . DIRECTED Sodium Chloride 0.9% [Saline Flush] 10 ml FLUSH ASDIRECTED PRN Blood Culture x2 Reflex Set [.] Stat 01/21/17 13:40 B-TYPE NATRIURETIC PEPTIDE,BNP [CHEM] Stat COMPREHENSIVE METABOLIC PN,CMP [CHEM] Stat CULTURE BLOOD [BC] Stat ETHANOL BLOOD MEDICAL [CHEM] Stat LACTIC ACID [CHEM] Stat MAGNESIUM [CHEM] Stat PHOSPHORUS [CHEM] Stat TROPONIN I [CHEM] Stat 01/21/17 13:46 CULTURE BLOOD [BC] Stat 01/21/17 14:37 RT Aerosol Therapy [RC] ASDIRECTED 01/21/17 14:55 UA W/MICROSCOPIC [URIN] Stat
[2017-01-21] MEDS ORDERED: Sodium Chloride 0.9% 10 ML Syringe FLUSH PRN (13:33)
--- NOTE | 2017-01-21 14:16 | CR ---
Clinical history: 51-year-old male shortness of breath and peripheral edema. Interpretation: Upright AP portable chest film with reasonably good inspiratory effort for morbidly obese male improved since November 2016 exams i.e. no current signs of venous congestion or alveolar lori a. No dependent new pleural fluid accumulation. Chronic mild cardiomegaly. No new lung mass, hilar lymphadenopathy or focal lobar pneumonia (old atelectasis/fibrosis right bas e). CONCLUSION: No acute cardiopulmonary abnormality (subtle radiographic improvement since previous exa ms November 2016).
[2017-01-21] MEDS ORDERED: Furosemide 40 MG/4 ML VIAL IVPUSH ONE (14:17)
[2017-01-21 14:28] VITALS: BP 137/61
[2017-01-21] MEDS ORDERED: Calcium Chloride 10% 1 GM/10 ML Syringe IVPUSH ONE (14:36)
[2017-01-21] MEDS ORDERED: Albuterol 0.083% 2.5 MG/3 ML Neb Soln NEB ONE (14:36)
[2017-01-21] MEDS ORDERED: Sodium Polystyrene Sulfonate 15 GM/60 ML Susp 60 ML Bot PO ONE (14:36)
[2017-01-21] MEDS ORDERED: 50% Dextrose in Water 50 ML Syringe IVPUSH ONE (14:37)
[2017-01-21] MEDS ORDERED: Insulin Regular, Human 100 Units/ML 3 ML Vial IV ONE (14:38)
[2017-01-21 14:45] LABS: SODIUM,NA 135 mmol/L (135-145)
--- NOTE | 2017-02-15 12:53 | EKG ---
01/21/2017 - GABBI SULLIVAN - EKG per my reading, shows sinus rhythm with inferior Q-waves. [facility] /[id number]
== END 2017-01-21 15:33 ==
LOC: DL.ED 13:28
DX: E11.22 Type 2 diabetes mellitus with diabetic chronic kidney disease (principal); I13.2 Hypertensive heart and chronic kidney disease with heart failure and with stage 5 chronic kidney disease, or end stage renal disease; I50.9 Heart failure, unspecified; N18.6 End stage renal disease; K21.9 Gastro-esophageal reflux disease without esophagitis; E87.5 Hyperkalemia; Z99.2 Dependence on renal dialysis; Z88.5 Allergy status to narcotic agent; Z88.8 Allergy status to other drugs, medicaments and biological substances; Z79.899 Other long term (current) drug therapy; Z87.442 Personal history of urinary calculi; Z98.890 Other specified postprocedural states
CPT/HCPCS: 36415; 71010; 80053; 80305; 81001; 82962; 83605; 83735; 83880; 84100; 84484; 85025; 85610; 85730; 87040; 93005; 96361; 96365; 96375; 96376; 99284; A9270; G0480; J1815; J1940; J7050; J7620; J7060